=== PATIENT | female | born 1975 | race Two or more races ===

== ENCOUNTER → 2018-03-08 | Emergency (ER) | payer OTHER ==
[~2018-03-08] VITALS: Ht 160 cm; Wt 99.8 kg
[~2018-03-08] MED LIST: PROVENTIL HFA6.7 GM IH; SINGULAIR 10MG10 MG PO; SYMBICORT 16010.2 GM IH; ZYNCOF 20-400120 ML PO
== END | disposition home or self-care (01) ==
LOC: ER 22:38
DX: J45.901 Unspecified asthma with (acute) exacerbation (principal)